=== PATIENT | female | born 1955 | race Caucasian/White ===

== ENCOUNTER 2017-07-02 08:56 | Day surgery (SDC) | payer BC, OTHER ==
[~2017-07-02 08:56] MED LIST: Lactated Ringers 1,000 ML IV SCH; Lidocaine 1%/Sod Bicarbonate in NS 8.4% 1 ML Syringe PRN; Sodium Chloride 0.9% 10 ML Syringe FLUSH PRN
--- NOTE | 2017-07-02 09:56 | PCM.PREANE ---
Preanesthetic Assessment - Anesthesia/Transfusion/Family Hx Anesthesia History: Prior Anesthesia Without Reaction Family History of Anesthesia Reaction: No Transfusion History: No Prior Transfusion(s) Intubation History: Unknown - Review of Systems General: No Symptoms Pulmonary: No Symptoms (quit smoking 16 yrs ago.) Cardiovascular: No Symptoms (History of HTN, [place] in , with stents times 2 noted.) Gastrointestinal: No Symptoms (history of gastric bypass/GERD) Neurological: No Symptoms Other: Reports: Thyroid Problems (hypothyroid) - Physical Assessment NPO Status Date: 07/01/17 NPO Status Time: 22:00 Pulse: 68 O2 Sat by Pulse Oximetry: 97 Respiratory Rate: 16 Blood Pressure: 137/76 Temperature: 37.1 C Vital Signs: Last Vital Signs Temp 37.1 C 07/02/17 09:05 Pulse 68 07/02/17 09:05 Resp 16 07/02/17 09:05 BP 137/76 07/02/17 09:05 Pulse Ox 97 07/02/17 09:05 Height: 1.57 m Weight: 77.111 kg ASA Class: 3 Mental Status: Alert & Oriented x3 Airway Class: Mallampati = 2 Dentition: Reports: Dentures (upper) Thyro-Mental Finger Breadths: 3 Mouth Opening Finger Breadths: 3 ROM/Head Extension: Full Lungs: Clear to Auscultation, Normal Respiratory Effort Cardiovascular: Regular Rate, Regular Rhythm, No Murmurs - Lab Values: Lab values reviewed and noted and acceptable to proceed with scheduled colonoscopy. - Imaging/EKG Impressions: EKG: SR rate= 57, Consider Left atrial enlargement, Probable Right Ventricular hypertrophy, borderline T wave abnormalities. CXR: unremarkable - Allergies Allergies/Adverse Reactions: Allergies Allergy/AdvReac Type Severity Reaction Status Date / Time atorvastatin [From Lipitor] Allergy Cannot Verified 07/01/17 14:03 Remember - Anesthesia Plan Pre-Op Medication Ordered: Beta Zofia Beta Zofia: Metoprolol Med Last Dose Date: 07/02/17 Med Last Dose Time: 06:30 - Acknowledgements Anesthesia Type Planned: MAC Pt an Appropriate Candidate for the Planned Anesthesia: Yes Alternatives and Risks of Anesthesia Discussed w Pt/Guardian: Yes Pt/Guardian Understands and Agrees with Anesthesia Plan: Yes PreAnesthesia Questionnaire HEENT History: Reports: Impaired Vision, Other (See Below) Other HEENT History: wears glasses, dentures Cardiovascular History: Reports: Hypertension, [place], Stents Respiratory History: Reports: None Gastrointestinal History: Reports: Colon Polyp Genitourinary History: Reports: Other (See Below) Other Genitourinary History: 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 Musculoskeletal History: Reports: Osteoporosis Neurological History: Reports: None Psychiatric History: Reports: None Endocrine/Metabolic History: Reports: Hypothyroidism Hematologic History: Reports: None Immunologic History: Reports: None Oncologic (Cancer) History: Reports: None Dermatologic History: Reports: None - Past Surgical History Head Surgeries/Procedures: Reports: None Cardiovascular Surgical History: Reports: None Respiratory Surgical History: Reports: None GI Surgical History: Reports: Bariatric Procedure, Colonoscopy Female Surgical History: Reports: Section Male Surgical History: Reports: None Endocrine Surgical History: Reports: None Neurological Surgical History: Reports: None Musculoskeletal Surgical History: Reports: Other (See Below) Other Musculoskeletal Surgeries/Procedures:: right rotator cuff repair Oncologic Surgical History: Reports: None Dermatological Surgical History: Reports: None - SUBSTANCE USE Smoking Status *Q: Former Smoker Recreational Drug Use History: No - HOME MEDS Home Medications: Home Meds Aspirin 81 mg PO DAILY 02/24/16 [History] Multivitamin [Multivitamins] 1 each PO DAILY 02/24/16 [History] Omeprazole 20 mg PO DAILY 02/24/16 [History] Cyanocobalamin/FA/Pyridoxine [Folbee] 1 tab PO Q48H 07/01/17 [History] Levothyroxine 125 mcg PO DAILY 07/01/17 [History] Metoprolol Succinate 12.5 mg PO BID 07/01/17 [History] Pravastatin Sodium [Pravastatin Sodium] 80 mg PO DAILY 07/01/17 [History] - CURRENT (IN HOUSE) MEDS Current Meds: Current Medications Lactated Ringer's (Ringers, Lactated) 1,000 mls @ 125 mls/hr IV ASDIRECTED LIVIA Stop: 07/02/17 23:00 Last Admin: 07/02/17 09:20 Dose: 125 mls/hr Lidocaine/Sodium Bicarbonate (Buffered Lidocaine 1% In Ns 8.4%) 0.25 ml .XX ONETIME PRN PRN Reason: Prior to IV Start Stop: 07/02/17 18:00 Last Admin: 07/02/17 09:20 Dose: 0.25 ml Sodium Chloride (Saline Flush) 10 ml FLUSH ASDIRECTED PRN PRN Reason: Keep Vein Open Stop: 07/02/17 18:00
[2017-07-02] MEDS ORDERED: Propofol 200 MG/20 ML SDV ONE (11:08)
[2017-07-02] MEDS ORDERED: Lidocaine 1% 4 ML ONE (11:09)
--- NOTE | 2017-07-02 11:32 | PCM.OPNOTE ---
- General Post-Op/Procedure Note Date of Surgery/Procedure: 07/02/17 Operative Procedure(s): Colonoscopy with rectal polypectomy 2 Findings: 1. Anal tags 2. Uncomplicated scattered and few sigmoid diverticula 3. Diminutive rectal polyps 2, both less than 5-6 mm in diameter Pre Op Diagnosis: History of multiple colorectal polyps Post-Op Diagnosis: 1. Anal skin tags. 2. Uncomplicated sigmoid diverticulosis. 3. Diminutive rectal polyps 2 Anesthesia Technique: MAC, Moderate Sedation Primary Surgeon: Martinez Covarrubias Pathology: Polyps from the rectum EBL in mLs: 0 Complications: None Condition: Good Free Text/Narrative:: After adequate IV sedation and analgesia was obtained with monitoring the patient was placed on her left side. Perianal inspection revealed 2-3 moderate- sized anal tags. Digital rectal examination was normal. A lubricated colonoscope was inserted into the rectum and advanced to the cecum with air insufflation as necessary and some abdominal pressure. The bowel preparation was adequate. The cecum, ascending colon transverse and descending colons were endoscopically normal with no mass lesions or inflammatory changes seen. The sigmoid had a few scattered small uncomplicated diverticuli. The rectum had 2 polyps which were removed with cold forceps. The specimen was retrieved and the areas were hemostatic. The retroflexed rectal view was unremarkable. Photographs were taken for the patient for the medical record. Air was removed as I finished the procedure which she tolerated well.
--- NOTE | 2017-07-02 11:37 | PCM48HPAN ---
Post Anesthesia Note - EVALUATION WITHIN 48HRS OF ANESTHETIC Vital Signs in Normal Range: Yes Patient Participated in Evaluation: Yes Respiratory Function Stable: Yes Airway Patent: Yes Cardiovascular Function Stable: Yes Hydration Status Stable: Yes Pain Control Satisfactory: Yes Nausea and Vomiting Control Satisfactory: Yes Mental Status Recovered: Yes
[2017-07-02 12:11] VITALS: BP 117/76
== END 2017-07-02 12:15 | disposition home or self-care (01) ==
LOC: JD.SDS 08:56
PROVIDERS: ATTEND Surgery
DX: Z12.11 Encounter for screening for malignant neoplasm of colon (principal); D12.8 Benign neoplasm of rectum; K57.30 Diverticulosis of large intestine without perforation or abscess without bleeding; K64.4 Residual hemorrhoidal skin tags; I10 Essential (primary) hypertension; I25.2 Old myocardial infarction; E78.5 Hyperlipidemia, unspecified; M81.0 Age-related osteoporosis without current pathological fracture; Z86.010 Personal history of colon polyps; Z87.891 Personal history of nicotine dependence; Z80.0 Family history of malignant neoplasm of digestive organs; Z83.3 Family history of diabetes mellitus; Z88.8 Allergy status to other drugs, medicaments and biological substances; Z79.82 Long term (current) use of aspirin; Z79.899 Other long term (current) drug therapy; Z98.890 Other specified postprocedural states; Z98.84 Bariatric surgery status; Z95.5 Presence of coronary angioplasty implant and graft
CPT/HCPCS: 45380; 93005; J7120; 00810; J2704

== ENCOUNTER 2018-09-20 11:35 | Emergency (ER) | payer BC ==
[2018-09-20 11:52] VITALS: BP 129/79
--- NOTE | 2018-09-20 12:06 | EDM.PDOC ---
ED HPI GENERAL MEDICAL PROBLEM - General Chief Complaint: Abdominal Pain Stated Complaint: ABDOMINAL PAIN Time Seen by Provider: 09/20/18 11:53 Source of Information: Reports: Patient, RN Notes Reviewed History Limitations: Reports: No Limitations - History of Present Illness INITIAL COMMENTS - FREE TEXT/NARRATIVE: Patient is s 63 year old female who presents to the ED with family members for the evaluation of upper abdominal pain. She states that she has been having some upper abdominal pain since before . She was see for a GI bleed around that time, and she has been on iron supplementation and has been having some constipation issues since then. She was also supposed to have an upper endoscopy and colonoscopy to figure out etiology of GI bleed, but his has not been done and is now scheduled for . She recently had a parathyroidectomy performed in [place] this last week and was discharged on Friday. She states that she had a normal BM yesterday, but this was very hard. She was also passing gas yesterday, and is now not able to pass gas. She has taken colace and miralax with 8 oz of water yesterday. She also has not been eating or drinking much since the parathyroidectomy. She has eaten some soft foods like pudding, with juice water and ensure. She has not take her regular medications yet this AM but has taken a Tramadol and some tylenol for pain relief. She states that she still has her appendix and gallbladder. She denies any fever/chills, nausea/vomiting/diarrhea, chest pain, shortness of breath. Treatments MEDICAL DIRECTOR: Reports: Other (see below) Other Treatments MEDICAL DIRECTOR: tramadol Upper Abdomen Pain Score (Numeric/FACES): 10 - Related Data Allergies Allergy/AdvReac Type Severity Reaction Status Date / Time atorvastatin [From Lipitor] Allergy Cannot Verified 08/15/18 20:39 Remember Home Meds: Home Meds Multivitamin [Multivitamins] 1 each PO DAILY 02/24/16 [History] Omeprazole 20 mg PO Q3D 02/24/16 [History] Cyanocobalamin/Folic AC/Vit B6 [Folbee] 1 tab PO ASDIRECTED 07/01/17 [History] Levothyroxine 112 mcg PO DAILY 07/01/17 [History] Metoprolol Succinate 12.5 mg PO DAILY 07/01/17 [History] Pravastatin Sodium 80 mg PO DAILY 07/01/17 [History] Solifenacin [Vesicare] 5 mg PO DAILY 08/15/18 [History] traMADol [Ultram] 50 mg PO Q6H PRN 09/20/18 [History] Past Medical History HEENT History: Reports: Impaired Vision, Other (See Below) Other HEENT History: wears glasses, dentures Cardiovascular History: Reports: Hypertension, [place], Stents Respiratory History: Reports: None Gastrointestinal History: Reports: Colon Polyp Genitourinary History: Reports: Other (See Below) Other Genitourinary History: 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, Musculoskeletal History: Reports: Osteoporosis Neurological History: Reports: None Psychiatric History: Reports: None Endocrine/Metabolic History: Reports: Hypothyroidism, Other (See Below) Other Endocrine/Metabolic History: parathyroid surgery Hematologic History: Reports: None Immunologic History: Reports: None Oncologic (Cancer) History: Reports: None Dermatologic History: Reports: None - Past Surgical History Head Surgeries/Procedures: Reports: None Cardiovascular Surgical History: Reports: None Respiratory Surgical History: Reports: None GI Surgical History: Reports: Bariatric Procedure, Colonoscopy, Polypectomy Female Surgical History: Reports: Section Endocrine Surgical History: Reports: Parathyroidectomy Neurological Surgical History: Reports: None Musculoskeletal Surgical History: Reports: Other (See Below) Other Musculoskeletal Surgeries/Procedures:: right rotator cuff repair Oncologic Surgical History: Reports: None Dermatological Surgical History: Reports: None Social & Family History - Tobacco Use Smoking Status *Q: Former Smoker Used Tobacco, but Quit: Yes Month/Year Tobacco Last Used: 20 yr - Caffeine Use Caffeine Use: Reports: Coffee - Recreational Drug Use Recreational Drug Use: No ED ROS GENERAL - Review of Systems Review Of Systems: See Below Constitutional: Denies: Fever, Chills, Decreased Appetite, Weight Loss HEENT: Reports: Other (recent parathyroidectomy) Respiratory: Reports: No Symptoms Cardiovascular: Reports: No Symptoms Endocrine: Reports: No Symptoms GI/Abdominal: Reports: Abdominal Pain (upper abdominal cramping), Constipation. Denies: Diarrhea, Decreased Appetite, Difficulty Swallowing, Distension, Flatus, Hematochezia, Melena, Nausea, Vomiting : Reports: No Symptoms Musculoskeletal: Reports: No Symptoms Skin: Reports: No Symptoms Neurological: Reports: No Symptoms Psychiatric: Reports: No Symptoms Hematologic/Lymphatic: Reports: No Symptoms Immunologic: Reports: No Symptoms ED EXAM, GI/ABD - Physical Exam Exam: See Below Exam Limited By: No Limitations General Appearance: Alert, WD/WN, No Apparent Distress Eyes: Bilateral: Normal Appearance Ears: Normal External Exam Nose: Normal Inspection Throat/Mouth: Normal Inspection, Normal Oropharynx, No Airway Compromise Head: Atraumatic, Normocephalic Neck: Normal Inspection Respiratory/Chest: No Respiratory Distress, Lungs Clear, Normal Breath Sounds, No Accessory Muscle Use, Chest Non-Tender Cardiovascular: Normal Peripheral Pulses, Regular Rate, Rhythm, No Edema, No Murmur GI/Abdominal Exam: Soft, No Distention, No Mass, Tender (LUQ and over epigastrium mainly), Abnormal Bowel Sounds (hypoactive) Extremities: Normal Inspection, Normal Capillary Refill Neurological: Alert, Oriented, Normal Cognition, No Motor/Sensory Deficits Psychiatric: Normal Affect, Normal Mood Skin Exam: Warm, Dry, Intact, Normal Color, No Rash Course - Vital Signs Last Recorded V/S: Last Vital Signs Temp 97.3 F 09/20/18 11:51 Pulse 69 09/20/18 11:51 Resp 20 09/20/18 11:51 BP 129/79 09/20/18 11:51 Pulse Ox 93 L 09/20/18 11:51 - Orders/Labs/Meds Orders: Active Orders 24 hr Category Date Time Status Enema [RC] ASDIRECTED Care 09/20/18 13:13 Active Peripheral IV Care [RC] . DIRECTED Care 09/20/18 12:27 Active CALCIUM, IONIZED, SERUM [REF] Stat Lab 09/20/18 12:55 Received Peripheral IV Insertion Adult [OM.PC] Routine Oth 09/20/18 12:27 Ordered Labs: Laboratory Tests 09/20/18 09/20/18 09/20/18 Range/Units 12:55 12:55 12:55 WBC 9.25 (3.98-10.04) K/mm3 RBC 3.89 L (3.98-5.22) M/mm3 Hgb 9.6 L (11.2-15.7) gm/L Hct 31.4 L (34.1-44.9) % MCV 80.7 (79.4-94.8) fl MCH 24.7 L (25.6-32.2) pg MCHC 30.6 L (32.2-35.5) g/dl RDW Std Deviation 49.5 H (36.4-46.3) fL Plt Count 522 H (182-369) K/mm3 MPV 9.5 (9.4-12.3) fl Neutrophils % (Manual) 81 H (40-60) % Band Neutrophils % 0 (0-10) % Lymphocytes % (Manual) 12 L (20-40) % Atypical Lymphs % 0 % Monocytes % (Manual) 3 (2-10) % Eosinophils % (Manual) 3 (0.7-5.8) % Basophils % (Manual) 1 (0.1-1.2) Platelet Estimate Marked inc Plt Morphology Comment Normal Polychromasia 1+ slight Anisocytosis 2+ moderate Ovalocytes Few RBC Morph Comment Not Reportable Sodium 138 (136-145) mEq/L Potassium 4.5 (3.5-5.1) mEq/L Chloride 99 (98-107) mEq/L Carbon Dioxide 28 (21-32) mEq/L Anion Gap 15.5 H (5-15) BUN 19 H (7-18) mg/dL Creatinine 1.1 H (0.55-1.02) mg/dL Est Cr Clr Drug Dosing 40.86 mL/min Estimated GFR (MDRD) 50 (>60) mL/min BUN/Creatinine Ratio 17.3 (14-18) Glucose 94 (80-115) mg/dL Calcium 10.2 H (8.5-10.1) mg/dL Magnesium 2.4 (1.8-2.4) mg/dl Total Bilirubin 0.3 (0.2-1.0) mg/dL AST 16 (15-37) U/L ALT 15 (14-59) U/L Alkaline Phosphatase 128 H (46-116) U/L Total Protein 8.6 H (6.4-8.2) g/dl Albumin 3.3 L (3.4-5.0) g/dl Globulin 5.3 gm/dL Albumin/Globulin Ratio 0.6 L (1-2) Meds: Medications Discontinued Medications Generic Name Dose Route Start Last Admin Trade Name Freq PRN Reason Stop Dose Admin Sodium Chloride 1,000 mls @ 500 mls/hr 09/20/18 12:30 09/20/18 13:01 Normal Saline IV 500 mls/hr ASDIRECTED LIVIA Administration Ketorolac Tromethamine 30 mg 09/20/18 12:26 09/20/18 13:05 Toradol IVPUSH 09/20/18 12:27 30 mg ONETIME ONE Administration Magnesium Citrate 296 ml 09/20/18 12:24 09/20/18 13:00 Citrate Of Magnesia PO 09/20/18 12:25 148 ml ONETIME ONE Administration Sodium Chloride 10 ml 09/20/18 12:27 09/20/18 13:06 Saline Flush FLUSH 10 ml ASDIRECTED PRN Administration Keep Vein Open - Re-Assessments/Exams Free Text/Narrative Re-Assessment/Exam: 09/20/18 12:42 Pt presents to the ED for the evaluation of upper abdominal pain/cramping. It is strongly suspicious for constipation. Have ordered IV fluids, CBC, CMP, magnesium, serum calcium with ionized calcium (due to recent parathryoidectomy) , and 30mg IV toradol and mag citrate, 1/2 bottle to start with, then the other half if no results in the next hour or so. 09/20/18 13:28 Nurse informed me that the patient was inquisitive of what I had ordered. She thought maybe showing the patient how to to an enema at home may help her with the constipation issues. I am fine with with this and did order a saline enema to see if this helps produce results as well. 09/20/18 14:33 Pt states that she has had 2 bowel movements and her pain has subsided. Will continue with IV bag of fluids until it is done and she will be discharged home. Departure - Departure Time of Disposition: 14:45 Disposition: Home, Self-Care 01 Condition: Fair Clinical Impression: Constipation Qualifiers: Constipation type: unspecified constipation type Qualified Code(s): K59.00 - Constipation, unspecified - Discharge Information *PRESCRIPTION DRUG MONITORING PROGRAM REVIEWED*: No *COPY OF PRESCRIPTION DRUG MONITORING REPORT IN PATIENT RAFAEL: No Instructions: High-Fiber Diet, Constipation, Adult, [id number], Pain Medicine Instructions, [id number] Referrals: Alma Burch PA [Primary Care Provider] - Forms: ED Department Discharge Additional Instructions: You have been evaluated in the ED for abdominal cramping. This was due to constipation. You have multiple factors working against you that lead to this, such as iron supplementation, recent surgery, tramadol, decreased fluid intake, etc. You may use an enema as needed for feelings of constipation, but if you do not get results within a few hours after the enema, you should be evaluated further. Please try increase your fluid intake as well. Dietary recommendations have been provided. Please return to ED if your symptoms should change or worsen. - My Orders Last 24 Hours: My Active Orders 09/20/18 12:27 Peripheral IV Care [RC] . DIRECTED Peripheral IV Insertion Adult [OM.PC] Routine 09/20/18 12:55 CALCIUM, IONIZED, SERUM [REF] Stat 09/20/18 13:13 Enema [RC] ASDIRECTED - Assessment/Plan Last 24 Hours: My Active Orders 09/20/18 12:27 Peripheral IV Care [RC] . DIRECTED Peripheral IV Insertion Adult [OM.PC] Routine 09/20/18 12:55 CALCIUM, IONIZED, SERUM [REF] Stat 09/20/18 13:13 Enema [RC] ASDIRECTED
[2018-09-20] MEDS ORDERED: Magnesium Citrate Solution 296 ML Bottle PO ONE (12:24)
[2018-09-20] MEDS ORDERED: Ketorolac 30 MG/ML SDV IVPUSH ONE (12:26)
[2018-09-20] MEDS ORDERED: Sodium Chloride 0.9% 10 ML Syringe FLUSH PRN (12:27)
[2018-09-20] MEDS ORDERED: Sodium Chloride 0.9% 1,000 ML IV SCH (12:30)
== END 2018-09-20 15:17 | disposition home or self-care (01) ==
LOC: JD.ED 11:35
DX: K59.00 Constipation, unspecified (principal); I10 Essential (primary) hypertension; I25.2 Old myocardial infarction; E03.9 Hypothyroidism, unspecified; Z87.891 Personal history of nicotine dependence; Z95.5 Presence of coronary angioplasty implant and graft; Z79.899 Other long term (current) drug therapy; Z88.8 Allergy status to other drugs, medicaments and biological substances
CPT/HCPCS: 80053; 82330; 83735; 85007; 85027; 96361; 96374; 99283; A9270; J1885; J7040; 99284

== ENCOUNTER 2020-04-04 11:51 | Emergency (ER) | payer OTHER, BC, MEDICARE ==
--- NOTE | 2020-04-04 12:25 | EDM.PDOC ---
ED HPI GENERAL MEDICAL PROBLEM - General Chief Complaint: General Stated Complaint: FELICE ABULUANCE Time Seen by Provider: 04/04/20 12:13 Source of Information: Reports: Patient, Family (spouse) History Limitations: Reports: No Limitations - History of Present Illness INITIAL COMMENTS - FREE TEXT/NARRATIVE: 64-year-old female presents to the ED per [facility] as a trauma alert. 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 She got tripped up and ended up falling face first into the concrete tiled floor. This caused her to be dazed but she did not lose consciousness. She believes she hit her forehead on the floor and she definitely struck her nose and her maxilla on the floor fracturing her upper denture plate and half. She has active bleeding from the gingiva and upper lip and right anterior naris. Complaining of mild cervical neck pain headache with no nausea. She is complaining of pain both sides of her anterior chest wall particularly the lower ribs. Some pain also in her back at the thoracolumbar junction pain in both wrists where she attempted to break her fall. She denies any pain in her knees at this time. She stayed on the floor did not get up until paramedics arrived. They started an IV and provided her with fentanyl 50 mcg IV. Her blood pressure here was 72/50 initially. Then came up to 108/74 5 minutes later. Perhaps fentanyl given by the paramedics because the transient hypotension. IV Ringer's lactate will be run at open. She does take medication for blood pressure in the mornings. She has not yet ate or drank yet today. Onset: Today, Sudden Onset Date: 04/04/20 Onset Time: 11:30 Treatments DIRECTOR CONSUMER: Reports: IV/IO Chest Pain Score (Numeric/FACES): 9 - Related Data Allergies Allergy/AdvReac Type Severity Reaction Status Date / Time atorvastatin [From Lipitor] Allergy Cannot Verified 04/04/20 12:08 Remember Home Meds: Home Meds Multivitamin [Multivitamins] 1 each PO DAILY 02/24/16 [History] Cyanocobalamin/Folic AC/Vit B6 [Folbee] 1 tab PO ASDIRECTED 07/01/17 [History] Levothyroxine 112 mcg PO DAILY 07/01/17 [History] Metoprolol Succinate 12.5 mg PO DAILY 07/01/17 [History] Pravastatin Sodium 80 mg PO DAILY 07/01/17 [History] L.acidoph,Paracasei, B.lactis [Probiotic] 1 each PO DAILY 09/22/18 [History] Pantoprazole Sodium [Protonix] 40 mg PO DAILY #30 tablet. 09/24/18 [Rx] Oxybutynin Chloride [Oxybutynin Chloride ER] 1 tab PO DAILY 04/04/20 [History] oxyCODONE HCl/Acetaminophen [Percocet 5-325 mg Tablet] 1 - 2 each PO Q4H PRN #20 tablet 04/04/20 [Rx] Past Medical History HEENT History: Reports: Impaired Vision, Other (See Below) Other HEENT History: wears glasses, dentures Cardiovascular History: Reports: Hypertension, [place], Stents (Has at least 1 stent placed after myocardial infarction.) Respiratory History: Reports: None Other Respiratory History: former smoker Gastrointestinal History: Reports: Colon Polyp, GERD, GI Bleed, Other (See Below) Other Gastrointestinal History: lower GI bleed, unknown source Genitourinary History: Reports: Other (See Below) Other Genitourinary History: 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 [employer] History: Reports: None, Musculoskeletal History: Reports: Osteoporosis Neurological History: Reports: None Psychiatric History: Reports: None Endocrine/Metabolic History: Reports: Hypothyroidism, Other (See Below) Other Endocrine/Metabolic History: parathyroid surgery Hematologic History: Reports: None Immunologic History: Reports: None Oncologic (Cancer) History: Reports: None Dermatologic History: Reports: None - Infectious Disease History Infectious Disease History: Reports: None - Past Surgical History Head Surgeries/Procedures: Reports: None Cardiovascular Surgical History: Reports: None Respiratory Surgical History: Reports: None GI Surgical History: Reports: Bariatric Procedure, Colonoscopy, Polypectomy Female Surgical History: Reports: Section Endocrine Surgical History: Reports: Parathyroidectomy Neurological Surgical History: Reports: None Musculoskeletal Surgical History: Reports: Other (See Below) Other Musculoskeletal Surgeries/Procedures:: right rotator cuff repair Oncologic Surgical History: Reports: None Dermatological Surgical History: Reports: None Social & Family History - Family History Family Medical History: Noncontributory - Tobacco Use Smoking Status *Q: Never Smoker - Caffeine Use Caffeine Use: Reports: Coffee - Recreational Drug Use Recreational Drug Use: No - Living Situation & Occupation Living situation: Reports: Occupation: Employed (She is employed at [employer] where she got hurt.) ED ROS GENERAL - Review of Systems Review Of Systems: See Below Constitutional: Reports: Malaise, Weakness, Fatigue. Denies: Fever, Chills, Weight Loss HEENT: Reports: Glasses Respiratory: Reports: Shortness of Breath. Denies: Wheezing, Pleuritic Chest Pain, Cough, Sputum Cardiovascular: Reports: Chest Pain (Chest pain after falling face first on concrete floor.), Blood Pressure Problem (On medication for blood pressure due to heart attack in the past), Dyspnea on Exertion Endocrine: Reports: Fatigue GI/Abdominal: Reports: No Symptoms : Reports: Frequency, Incontinence (Both stress and urge components.) Musculoskeletal: Reports: Neck Pain, Shoulder Pain, Back Pain, Joint Pain (His hips lower back) Skin: Reports: No Symptoms (National.) Neurological: Reports: No Symptoms Psychiatric: Reports: No Symptoms Hematologic/Lymphatic: Reports: No Symptoms Immunologic: Reports: No Symptoms ED EXAM, GENERAL - Physical Exam Exam: See Below Exam Limited By: No Limitations General Appearance: Alert, WD/WN, Moderate Distress, Other (Temperature is 35.9 which is inaccurate. Heart rate was 56 sinus bradycardia in the monitor respiratory to 16 with O2 sats of 92% room air. Initial BP was 72/50 but did come up to 108/72. Note she had received fentanyl 50 mcg IV just prior to entering the ED.) Eye Exam: Bilateral Eye: Normal Inspection, PERRL Ears: Normal TMs Nose: Other (Some fresh blood from the anterior right naris. The nose itself seems to be intact with no obvious fractures. No septal hematoma identified) Throat/Mouth: Other (She has marked swelling and abrasions to her upper lip particular the inner upper mucosa in the midline. There is also contusions to the gingiva margin in the midline but no significant lacerations that would benefit from repair. She fractured her upper denture plate in half which caused these injuries. No obvious injuries to the tongue or lower dentition.) Head: Other (Some tenderness in the mid forehead without significant swelling or scalp hematoma.) Neck: Carotid Bruit, Tender Lateral (Are in the midline from cervical 4 to cervical 7. No step-off deformities identified. Tender laterally both sides of the cervical spine but she states she has chronic cervical neck pain.), Tender Midline. No: Lymphadenopathy (L), Lymphadenopathy (R) Respiratory/Chest: No Respiratory Distress, Normal Breath Sounds, No Accessory Muscle Use, Decreased Breath Sounds (Creased air entry to the posterior lung alanis by 25%.), Other (Pain to palpation of lateral anterior ribs 6-12 bilaterally. Seems to be worse along the costal margins bilaterally.) Cardiovascular: Regular Rate, Rhythm, No Edema, No Gallop, No Murmur, No Rub, Other (Is a thick chest making heart sounds a little more faint than normal but no abnormalities were noted.) Peripheral Pulses: 2+: Carotid (L), Carotid (R), Posterior Tibial (L), Posterior Tibial (R), Dorsalis Pedis (L), Dorsalis Pedis (R) GI/Abdominal: Normal Bowel Sounds, Soft, Non-Tender, No Organomegaly, No Mass, Pelvis Stable, Other (No obvious abrasions or contusions to the abdomen). No: Guarding, Rigid, Rebound, Tender Back Exam: Other (She has pain to palpation at the thoracolumbar junction and lower thoracic's 06/04/2012 and lumbar 1-3 on examination. No abrasions or contusions are appreciated on her back.) Extremities: Other (She had full patellofemoral movement without pain. She has very limited external rotation of both hips suggesting significant osteoarthritic change. No pain in the pelvis with this movement. Upper extremities show pain in both wrists to palpation worse on the left side as compared to the right. Suspect fracture in the left distal radius.) Neurological: Alert, Oriented, CN II-XII Intact, Normal Cognition Psychiatric: Other Skin Exam: Warm, Dry (Good deal of discomfort.), Intact, Normal Color, No Rash EKG INTERPRETATION EKG Date: 04/04/20 Time: 12:28 Rhythm: Other (Sinus bradycardia) Rate (Beats/Min): 52 [place]: RAD-Right [place] Deviation (Right axis deviation 163 degrees) P-Wave: Enlarged (Left atrial hypertrophy pattern.) QRS: Other (Alexander R wave transition V2 V3 consider right ventricular hypertrophy pattern. Decreased voltage in the limb leads.) ST-T: Normal QT: Normal EKG Interpretation Comments: Abnormal ECG Course - Vital Signs Last Recorded V/S: Last Vital Signs Temp 35.9 C L 04/04/20 12:02 Pulse 56 L 04/04/20 12:02 Resp 16 04/04/20 12:02 BP 88/61 L 04/04/20 12:11 Pulse Ox 92 L 04/04/20 12:16 - Orders/Labs/Meds Orders: Active Orders 24 hr Category Date Time Status EKG Documentation Completion [RC] STAT Care 04/04/20 12:18 Active Oxygen Therapy [RC] ASDIRECTED Care 04/04/20 14:24 Active CORONAVIRUS COVID-19 PCR PHL Stat Lab 04/04/20 14:24 Ordered Lactated Ringers [Ringers, Lactated] 1,000 ml Med 04/04/20 12:30 Active IV ASDIRECTED Durable Medical Equipment for Discharge [DME for Oth 04/04/20 14:21 Ordered Discharge] [COMM] Stat Medication Orders Lactated Ringer's (Ringers, Lactated) 1,000 mls @ 999 mls/hr IV ASDIRECTED LIVIA Last Admin: 04/04/20 12:26 Dose: 999 mls/hr Documented by: TEZ Labs: Laboratory Tests 04/04/20 04/04/20 04/04/20 Range/Units 13:17 13:17 13:17 WBC 8.80 (3.98-10.04) K/mm3 RBC 4.82 (3.98-5.22) M/mm3 Hgb 13.5 (11.2-15.7) gm/dl Hct 41.4 (34.1-44.9) % MCV 85.9 (79.4-94.8) fl MCH 28.0 (25.6-32.2) pg MCHC 32.6 (32.2-35.5) g/dl RDW Std Deviation 44.0 (36.4-46.3) fL Plt Count 253 (182-369) K/mm3 MPV 9.7 (9.4-12.3) fl Neut % (Auto) 78.4 H (34.0-71.1) % Lymph % (Auto) 12.7 L (19.3-51.7) % [place] % (Auto) 7.6 (4.7-12.5) % Eos % (Auto) 0.7 (0.7-5.8) Baso % (Auto) 0.3 (0.1-1.2) % Neut # (Auto) 6.89 H (1.56-6.13) K/mm3 Lymph # (Auto) 1.12 L (1.18-3.74) K/mm3 [place] # (Auto) 0.67 H (0.24-0.36) K/mm3 Eos # (Auto) 0.06 (0.04-0.36) K/mm3 Baso # (Auto) 0.03 (0.01-0.08) K/mm3 PT 10.3 (9.7-12.0) SECONDS INR 0.96 APTT 21 L (22-31) SECONDS Sodium (136-145) mEq/L Potassium (3.5-5.1) mEq/L Chloride (98-107) mEq/L Carbon Dioxide (21-32) mEq/L Anion Gap (5-15) BUN (7-18) mg/dL Creatinine (0.55-1.02) mg/dL Est Cr Clr Drug Dosing Estimated GFR (MDRD) (>60) mL/min BUN/Creatinine Ratio (14-18) Glucose (80-115) mg/dL Lactic Acid (0.4-2.0) mmol/L Calcium (8.5-10.1) mg/dL Magnesium (1.8-2.4) mg/dl Total Bilirubin (0.2-1.0) mg/dL AST (15-37) U/L ALT (14-59) U/L Alkaline Phosphatase (46-116) U/L Troponin I (0.00-0.056) ng/mL C-Reactive Protein (<1.0) mg/dL NT-Pro-B Natriuret Pep (0-125) pg/mL Total Protein (6.4-8.2) g/dl Albumin (3.4-5.0) g/dl Globulin gm/dL Albumin/Globulin Ratio (1-2) Urine Color (Yellow) Urine Appearance (Clear) Urine pH (5.0-8.0) Ur Specific [place] (1.005-1.030) Urine Protein (Negative) Urine Glucose (UA) (Negative) Urine Ketones (Negative) Urine Occult Blood (Negative) Urine Nitrite (Negative) Urine Bilirubin (Negative) Urine Urobilinogen (0.2-1.0) Ur Leukocyte Esterase (Negative) U Hyaline Cast (Auto) (0-5) /lpf Urine RBC (0-5) /hpf Urine WBC (0-5) /hpf Ur Squamous Epith Cells (0-5) /hpf Urine Bacteria (FEW) /hpf Urine Mucus (FEW) /hpf Blood Type B POSITIVE Gel Antibody Screen Negative 04/04/20 04/04/20 04/04/20 Range/Units 13:17 13:17 13:17 WBC (3.98-10.04) K/mm3 RBC (3.98-5.22) M/mm3 Hgb (11.2-15.7) gm/dl Hct (34.1-44.9) % MCV (79.4-94.8) fl MCH (25.6-32.2) pg MCHC (32.2-35.5) g/dl RDW Std Deviation (36.4-46.3) fL Plt Count (182-369) K/mm3 MPV (9.4-12.3) fl Neut % (Auto) (34.0-71.1) % Lymph % (Auto) (19.3-51.7) % [place] % (Auto) (4.7-12.5) % Eos % (Auto) (0.7-5.8) Baso % (Auto) (0.1-1.2) % Neut # (Auto) (1.56-6.13) K/mm3 Lymph # (Auto) (1.18-3.74) K/mm3 [place] # (Auto) (0.24-0.36) K/mm3 Eos # (Auto) (0.04-0.36) K/mm3 Baso # (Auto) (0.01-0.08) K/mm3 PT (9.7-12.0) SECONDS INR APTT (22-31) SECONDS Sodium 135 L (136-145) mEq/L Potassium 4.4 (3.5-5.1) mEq/L Chloride 101 (98-107) mEq/L Carbon Dioxide 30 (21-32) mEq/L Anion Gap 8.4 (5-15) BUN 16 (7-18) mg/dL Creatinine 1.1 H (0.55-1.02) mg/dL Est Cr Clr Drug Dosing TNP Estimated GFR (MDRD) 50 (>60) mL/min BUN/Creatinine Ratio 14.5 (14-18) Glucose 96 (80-115) mg/dL Lactic Acid 1.1 (0.4-2.0) mmol/L Calcium 10.1 (8.5-10.1) mg/dL Magnesium 1.9 (1.8-2.4) mg/dl Total Bilirubin 0.5 (0.2-1.0) mg/dL AST 23 (15-37) U/L ALT 27 (14-59) U/L Alkaline Phosphatase 69 (46-116) U/L Troponin I < 0.017 (0.00-0.056) ng/mL C-Reactive Protein <0.2 (<1.0) mg/dL NT-Pro-B Natriuret Pep 260 H (0-125) pg/mL Total Protein 7.1 (6.4-8.2) g/dl Albumin 3.3 L (3.4-5.0) g/dl Globulin 3.8 gm/dL Albumin/Globulin Ratio 0.9 L (1-2) Urine Color (Yellow) Urine Appearance (Clear) Urine pH (5.0-8.0) Ur Specific [place] (1.005-1.030) Urine Protein (Negative) Urine Glucose (UA) (Negative) Urine Ketones (Negative) Urine Occult Blood (Negative) Urine Nitrite (Negative) Urine Bilirubin (Negative) Urine Urobilinogen (0.2-1.0) Ur Leukocyte Esterase (Negative) U Hyaline Cast (Auto) (0-5) /lpf Urine RBC (0-5) /hpf Urine WBC (0-5) /hpf Ur Squamous Epith Cells (0-5) /hpf Urine Bacteria (FEW) /hpf Urine Mucus (FEW) /hpf Blood Type Gel Antibody Screen 04/04/20 Range/Units 13:31 WBC (3.98-10.04) K/mm3 RBC (3.98-5.22) M/mm3 Hgb (11.2-15.7) gm/dl Hct (34.1-44.9) % MCV (79.4-94.8) fl MCH (25.6-32.2) pg MCHC (32.2-35.5) g/dl RDW Std Deviation (36.4-46.3) fL Plt Count (182-369) K/mm3 MPV (9.4-12.3) fl Neut % (Auto) (34.0-71.1) % Lymph % (Auto) (19.3-51.7) % [place] % (Auto) (4.7-12.5) % Eos % (Auto) (0.7-5.8) Baso % (Auto) (0.1-1.2) % Neut # (Auto) (1.56-6.13) K/mm3 Lymph # (Auto) (1.18-3.74) K/mm3 [place] # (Auto) (0.24-0.36) K/mm3 Eos # (Auto) (0.04-0.36) K/mm3 Baso # (Auto) (0.01-0.08) K/mm3 PT (9.7-12.0) SECONDS INR APTT (22-31) SECONDS Sodium (136-145) mEq/L Potassium (3.5-5.1) mEq/L Chloride (98-107) mEq/L Carbon Dioxide (21-32) mEq/L Anion Gap (5-15) BUN (7-18) mg/dL Creatinine (0.55-1.02) mg/dL Est Cr Clr Drug Dosing Estimated GFR (MDRD) (>60) mL/min BUN/Creatinine Ratio (14-18) Glucose (80-115) mg/dL Lactic Acid (0.4-2.0) mmol/L Calcium (8.5-10.1) mg/dL Magnesium (1.8-2.4) mg/dl Total Bilirubin (0.2-1.0) mg/dL AST (15-37) U/L ALT (14-59) U/L Alkaline Phosphatase (46-116) U/L Troponin I (0.00-0.056) ng/mL C-Reactive Protein (<1.0) mg/dL NT-Pro-B Natriuret Pep (0-125) pg/mL Total Protein (6.4-8.2) g/dl Albumin (3.4-5.0) g/dl Globulin gm/dL Albumin/Globulin Ratio (1-2) Urine Color Yellow (Yellow) Urine Appearance Clear (Clear) Urine pH 8.0 (5.0-8.0) Ur Specific [place] 1.020 (1.005-1.030) Urine Protein Negative (Negative) Urine Glucose (UA) Negative (Negative) Urine Ketones Negative (Negative) Urine Occult Blood Negative (Negative) Urine Nitrite Negative (Negative) Urine Bilirubin Negative (Negative) Urine Urobilinogen 0.2 (0.2-1.0) Ur Leukocyte Esterase Negative (Negative) U Hyaline Cast (Auto) 0-5 (0-5) /lpf Urine RBC 0-5 (0-5) /hpf Urine WBC 0-5 (0-5) /hpf Ur Squamous Epith Cells 0-5 (0-5) /hpf Urine Bacteria Few (FEW) /hpf Urine Mucus Rare (FEW) /hpf Blood Type Gel Antibody Screen Meds: Medications Generic Name Dose Route Start Last Admin Trade Name Freq PRN Reason Stop Dose Admin Lactated Ringer's 1,000 mls @ 999 mls/hr 04/04/20 12:30 04/04/20 12:26 Ringers, Lactated IV 999 mls/hr ASDIRECTED LIVIA Administration Discontinued Medications Generic Name Dose Route Start Last Admin Trade Name Freq PRN Reason Stop Dose Admin Hydromorphone HCl 0.5 mg 04/04/20 12:39 04/04/20 12:43 Dilaudid IVPUSH 04/04/20 12:40 0.5 mg ONETIME ONE Administration Ondansetron HCl 4 mg 04/04/20 12:39 04/04/20 12:42 Zofran IVPUSH 04/04/20 12:40 4 mg ONETIME ONE Administration - Radiology Interpretation Free Text/Narrative:: 64-year-old female who is an employee at [employer] presents to the ED per ambulance. 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 She fell face first into the concrete tiled floor injuring her mid facial structures particularly fracturing her upper denture plate and a half. This resulted in contusions abrasions to the upper gingiva margin alveolar bone and to her upper lip. No sutures will be required. The lip is markedly swollen. There is bruising on her anterior chin. She has some blood from the right anterior naris with no clinical fracture of the nose. Mild swelling of the mid forehead appreciated. No injuries to the eyes. Temporomandibular joints appear to be intact. No injuries to the tongue or lower dentition identified. Some tenderness throughout the lower and mid cervical spine on exam. Pain at the thoracolumbar junction in her mid back on examination. Pain along the anterior chest wall particular ribs to 6-12 bilaterally from blunt force trauma. Pain in both wrists on examination left worse than the right suspect fracture distal radius on the left side. No injuries to the abdomen. No injuries to the lower extremities identified. Plan she will have CT head cervical spine thoracic spine lumbar spine and CT chest abdomen and pelvis with IV contrast. Her blood pressure initially was 72/50 concerning for intra-abdominal injury but abdomen appeared to be benign on initial assessment. However due to the possibility of injury to liver or spleen from anterior chest wall contusions CT with IV contrast will be done on a emergent basis. IV is Ringer's lactate at open. Given Dilaudid 0.5 mg IV with Zofran 4 mg IV for pain relief. - Re-Assessments/Exams Free Text/Narrative Re-Assessment/Exam: 04/04/20 13:27 CT of the head reveals the ventricles along with the basal cisterns and sulci over the convexities to be mildly prominent. No abnormal parenchymal densities are seen. No evidence of intracranial hemorrhage or midline shift identified. No mass-effect identified. Bone window settings were reviewed which shows the visualized paranasal sinuses and mastoid sinuses show nothing acute. CT of the cervical spine reveals mild degenerative changes noted between the dens and the anterior arch of C1. Mild disc space narrowing is noted at C5-C6 level with slight posterior osteophytes. Mild scattered degenerative apophyseal changes seen throughout the cervical and upper thoracic spine. No fractures are identified. No abnormal subluxation is appreciated. CT of the facial bones reveals paranasal sinuses are clear. No air-fluid levels are seen. Slight nasal septal deviation is seen. Right and left lobes are symmetric. Mild degenerative changes seen within the temporomandibular joints no facial bone fracture is appreciated particularly no maxillary fracture. T of the lumbar spine reveals disc spaces narrowing within the lower thoracic spine and particularly at the L1-L2 level. This space narrowing is also noted at the L5-S1 level. Mild posterior disc space narrowing is also noted at the L4-L5 level. Minimal spondylolisthesis at L4-L5 level appreciated due to degenerative apophyseal changes. Scattered disc bulging is seen. Degenerative apophyseal changes scattered throughout the lumbar spine no acute fractures are identified. T of the thoracic spine reveals advanced degenerative arthritic changes throughout all levels. There is diffuse disc space narrowing and endplate spurring at multiple levels. Several mild compression deformities are seen within the mid to lower thoracic spine which appear to be old as no definite acute fracture lines are appreciated. No bony central or bony neuroforaminal stenosis is seen. Kyphosis is appreciated. CT of the chest reveals the aorta to show no aneurysm. Coronary artery calcification is appreciated. No mediastinal or hilar adenopathy and no or masses are noted. No axillary adenopathy noted. No pericardial thickening is seen. Prior gastric surgery is appreciated small hiatal hernia noted. The lungs are clear with no acute parenchymal changes. No pleural effusions are seen. Heart is mildly enlarged. Bone window settings were reviewed which show degenerative changes throughout the thoracic spine she is also had previous surgery on her right shoulder. CT of the abdomen and pelvis reveals liver to contain no focal parenchymal abnormalities. Spleen appears to be within normal limits. Adrenal glands are normal. Kidneys show symmetric contrast enhancement without hydronephrosis or masses. Gallbladder contains no calcified gallstones. Pancreas shows no discrete abnormality possible duodenal diverticulum is seen measuring 2.5 cm. Aorta shows diffuse atherosclerotic changes. Slight ectasia is seen but no aneurysm identified no retroperitoneal adenopathy noted. No mesenteric abnormalities noted. No pelvic mass or adenopathy noted. Appendix is not visualized with certainty and patient has a history of appendectomy. 04/04/20 13:39 White blood cell count is 8.80 with 78.4% neutrophils on auto differential. Hemoglobin is 13.5 with hematocrit of 41.4. Platelet count is 253,000. X-ray of the left wrist reveals a slight cortical disruption of the posterior radius compatible with a small fracture. X-ray of the right wrist reveals a small chip fracture off the triquetrum bone posteriorly. Osteopenia and mild degenerative changes appreciated in the carpal bones. Going to place an Timothy wrap on her right wrist as the cortical fracture will only be painful with gripping objects. I am going to look for a left thumb spica splint for the triquetrium fracture on the left side. Departure - Departure Time of Disposition: 14:29 Disposition: Home, Self-Care 01 Condition: Fair Clinical Impression: Minor closed head injury, Strain of thoracic spine Facial contusion Qualifiers: Encounter type: initial encounter Qualified Code(s): S00.83XA - Contusion of other part of head, initial encounter Contusion of vermilion border of upper lip Qualifiers: Encounter type: initial encounter Qualified Code(s): S00.531A - Contusion of lip, initial encounter Contusion of chin Qualifiers: Encounter type: initial encounter Qualified Code(s): S00.83XA - Contusion of other part of head, initial encounter Sprain of cervical neck Qualifiers: Encounter type: initial encounter Qualified Code(s): S13.9XXA - Sprain of joints and ligaments of unspecified parts of neck, initial encounter Fracture of triquetrum of left wrist, closed Qualifiers: Encounter type: initial encounter Fracture alignment: displaced Qualified Code(s): S62.112A - Displaced fracture of triquetrum [cuneiform] bone, left wrist, initial encounter for closed fracture Fracture, radius, distal Qualifiers: Encounter type: initial encounter Fracture type: closed Fracture morphology: other extra-articular Laterality: right Qualified Code(s): S52.551A - Other extraarticular fracture of lower end of right radius, initial encounter for closed fracture - Discharge Information *PRESCRIPTION DRUG MONITORING PROGRAM REVIEWED*: Not Applicable *COPY OF PRESCRIPTION DRUG MONITORING REPORT IN PATIENT RAFAEL: Not Applicable Prescriptions: oxyCODONE HCl/Acetaminophen [Percocet 5-325 mg Tablet] 1 - 2 each PO Q4H PRN #20 tablet PRN Reason: pain relief. Instructions: Cervical Sprain, [id number], Wrist Fracture Treated With Immobilization Referrals: PCP,None [Ordering Only Provider] - Forms: ED Department Discharge, ED Return to Work/School Form Additional Instructions: Evaluation in the emergency room today in regards to a work related accident from a trip and fall onto the concrete tiled floor. This resulted in mid facial injuries particular to the chin with bruising fracture of your upper denture plate and contusion to the underlying gingiva and maxillary bone. No fractures are identified. Slight bleeding from the right anterior naris but no nasal fractures appreciated on CT of the facial bones. Mild contusion to the mid forehead. CT reveals no intracranial bleeding or mass-effect and no skull fracture. CT of your neck reveals advanced degenerative arthritic changes throughout at multiple levels but no broken bones. Expect her neck to be much more stiff and sore over the next 2 to 3 days. Pain throughout your thoracolumbar spine which means the mid and lower back junction is due to marked degenerative arthritic changes throughout the lumbar and thoracic spine but no fractures were identified. Expect to have increased back pain over the next 2 to 3 days as well which will probably last a good 10 days. Also blunt trauma occurred to the anterior chest wall from the impact with the floor. No rib fractures were identified and no injury to the underlying lungs identified. No injuries to the lower extremities were identified on examination. Intra-abdo jacob organs were also all within normal limits. X-ray of the left wrist reveals an avulsion fracture off the triquetrum bone which is 1 of 8 bones in your wrist on the thumb side. This requires a thumb spica splint to be worn at all times except to bathe. This will likely be required for 3 to 4 weeks. On the right side there is a cortical sure of the distal radius bone which will likely not hurt too badly except if you bump it or banging it . 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 This will take a good couple of weeks to settle down as well. You will need to be off work for a minimum of 2 weeks and I suspect it would likely be 3 to 4 weeks before you are able to return to full work duties due to injuries to your wrists. Suggest making a follow-up appointment with Dr. Tijerina orthopedic surgeon on the side of the hospital. He works for [facility] in [place]. Please call [phone] to arrange an appointment. He will follow you along to make sure your injuries heal satisfactorily and determine when it is suitable for you to return to work. In the meantime you may use Motrin 600 mg every 6 hours or Aleve 2 tablets every 8 hours to reduce pain and inflammation. Percocet tabs 5/325 mg 1 or 2 every 4-6 hours as needed for the next 3 to 6 days until acute injury settle down. CT did reveal that you have constipation with significant amount of stool in your colon. I would suggest using MiraLAX powder 17 g every single day while you are taking the pain medication. Sepsis Event Note (ED) - Evaluation Sepsis Screening Result: No Definite Risk - Focused Exam Vital Signs: Vital Signs Temp Pulse Resp BP Pulse Ox 04/04/20 12:16 92 L 04/04/20 12:15 83 L 04/04/20 12:11 88/61 L 04/04/20 12:02 35.9 C L 56 L 16 72/50 L 90 L - My Orders Last 24 Hours: My Active Orders 04/04/20 12:18 EKG Documentation Completion [RC] STAT 04/04/20 12:30 Lactated Ringers [Ringers, Lactated] 1,000 ml IV ASDIRECTED 04/04/20 14:21 Durable Medical Equipment for Discharge [DME for Discharge] [COMM] Stat 04/04/20 14:24 Oxygen Therapy [RC] ASDIRECTED CORONAVIRUS COVID-19 PCR PHL Stat - Assessment/Plan Last 24 Hours: My Active Orders 04/04/20 12:18 EKG Documentation Completion [RC] STAT 04/04/20 12:30 Lactated Ringers [Ringers, Lactated] 1,000 ml IV ASDIRECTED 04/04/20 14:21 Durable Medical Equipment for Discharge [DME for Discharge] [COMM] Stat 04/04/20 14:24 Oxygen Therapy [RC] ASDIRECTED CORONAVIRUS COVID-19 PCR PHL Stat
[2020-04-04] MEDS ORDERED: Lactated Ringers 1,000 ML IV SCH (12:30)
[2020-04-04] MEDS ORDERED: Ondansetron 4 MG/2 ML SDV IVPUSH ONE (12:39)
[2020-04-04] MEDS ORDERED: HYDROmorphone 0.5 MG/0.5 ML Syringe IVPUSH ONE (12:39)
--- NOTE | 2020-04-04 13:20 | CT ---
Head CT Technique: Multiple axial sections through the brain were obtained. Intravenous contrast was not utilized. Comparison: No prior intracranial imaging is available. Findings: Ventricles along with basal cisterns and sulci over the convexities are mildly prominent. No abnormal parenchymal densities are seen. No evidence of intracranial hemorrhage. No midline shift or mass effect is appreciated. Bone window settings were reviewed which shows the visualized paranasal sinuses and mastoid sinuses to show nothing acute. No acute calvarial finding is appreciated. Impression: 1. Nothing acute is identified on noncontrast head CT exam. Diagnostic code #2 Study was dictated in MDT
--- NOTE | 2020-04-04 13:21 | CT ---
CT cervical spine Technique: Multiple axial sections were obtained from above C1 inferiorly to the top of T3. Reconstructed sagittal and coronal images were reviewed. Comparison: No prior cervical spine imaging. Findings: Mild degenerative change is noted between the dens and anterior arch of C1. Mild disc space narrowing is noted C5-C6 with slight posterior osteophytes. Mild scattered degenerative apophyseal change is seen throughout the cervical and upper thoracic spine. No fracture is appreciated. No abnormal subluxation is appreciated. No bony central or bony neural foraminal stenosis is appreciated. Impression: 1. Mild degenerative change. 2. No acute fracture or abnormal subluxation is seen. Diagnostic code #2 Study was dictated in MDT
--- NOTE | 2020-04-04 13:22 | CT ---
CT facial bones Technique: Multiple axial sections through the facial bones were obtained. Intravenous contrast not utilized. Reconstructed coronal and sagittal images were obtained. Findings: Paranasal sinuses are clear. No air-fluid levels are seen. Slight nasal septal deviation is seen. Right and left globes are symmetric. Mild degenerative change is seen within the temporomandibular joints. No facial bone fracture is appreciated. Impression: 1. Nothing acute is appreciated on CT study of the facial bones. 2. Mild degenerative change within the temporomandibular joints. Diagnostic code #2 Study was dictated in MDT
--- NOTE | 2020-04-04 13:23 | CT ---
CT lumbar spine Technique: Multiple axial sections through the lumbar spine were obtained. Intravenous contrast was not utilized. Comparison: Previous MRI lumbar spine study of 04/07/19 is available. Findings: Disc space narrowing is noted within the lower thoracic spine and at L1-L2. Disc space narrowing is also noted at L5-S1. Mild posterior disc space narrowing is noted at L4-L5. Minimal spondylolisthesis at L4-L5 due to degenerative apophyseal change is seen. Scattered disc bulging is seen. Degenerative apophyseal change is scattered throughout the lumbar spine. No acute fracture is appreciated. Impression: 1. Diffuse degenerative change. 2. No acute fracture or acute subluxation is appreciated. Diagnostic code #2 Study was dictated in MDT
--- NOTE | 2020-04-04 13:31 | CR ---
Right wrist: 4 views the right wrist were obtained. Comparison: No prior right wrist exam is available. Small chip fracture is noted off posterior triquetrum which is seen on the lateral view. Bony structures are osteopenic. Minimal degenerative change of the distal navicular bone is seen. No additional fracture or other abnormality is appreciated. Impression: 1. Small chip fracture off posterior triquetrum. This is most likely acute. 2. Osteopenia and mild degenerative change. Diagnostic code #3 Study was dictated in MDT
--- NOTE | 2020-04-04 13:32 | CR ---
Left wrist: 4 views of the left wrist were obtained. Comparison: Previous left wrist exam of 02/24/16. Slight joint space narrowing noted off the distal navicular bone. Joint spaces otherwise are preserved. Mild osteopenia is seen. Small bony density is seen off the posterior radius. This may represent a small acute fracture. No additional fracture or other bony abnormality is appreciated. Impression: 1. Slight cortical disruption of the posterior radius possibly due to small acute fracture. 2. Osteopenia and mild degenerative change. Diagnostic code #3 Study was dictated in MDT
--- NOTE | 2020-04-04 13:50 | CT ---
CT chest Technique: Multiple axial sections were obtained from above the lung apices inferiorly through the lung bases. Intravenous contrast was utilized. Comparison: No prior chest CT is available. Findings: Aorta shows no aneurysm. Coronary artery calcification is seen. No mediastinal or hilar adenopathy or mass is seen. No axillary adenopathy is seen. No pericardial thickening is seen. Prior gastric surgery is noted. Small hiatal hernia is seen. Lungs are clear with no acute parenchymal change. No pleural effusions are seen. Heart is slightly enlarged. Bone window settings were reviewed which show degenerative change within the spine. No discrete osseous abnormality is appreciated. Previous right shoulder surgery is noted. Impression: 1. Multiple findings as noted above. 2. Nothing acute is seen on CT study of the chest. Diagnostic code #2 Study was dictated in MDT CT abdomen and pelvis Technique: Multiple axial sections were obtained from above the dome of the diaphragm inferiorly through the pubic symphysis. Intravenous contrast was utilized. No oral contrast has been given. Comparison: No prior abdominal CT is available. Findings: Liver contains no focal parenchymal abnormality. Spleen appears within normal limits. Adrenal glands show no nodule. Kidneys show symmetric contrast enhancement without hydronephrosis or mass. Gallbladder contains no calcified gallstones. Pancreas shows no discrete abnormality. Possible duodenal diverticulum is seen measuring 2.5 cm. Aorta shows diffuse atherosclerotic change. Slight ectasia is seen but no aneurysm is identified. Prior gastric surgery is noted with small hiatal hernia. No retroperitoneal adenopathy is seen. No mesenteric abnormalities are seen. No pelvic mass or adenopathy is appreciated. Appendix not visualized with certainty. Bone window settings were reviewed which shows no acute osseous finding. Impression: 1. Findings believed to be incidental as noted above. 2. Nothing acute is identified on CT study of the abdomen and pelvis. Diagnostic code #2 Study was dictated in MDT
--- NOTE | 2020-04-04 13:51 | CT ---
CT thoracic spine Technique: Multiple axial sections through the thoracic spine were obtained. Reconstructed coronal and sagittal images were reviewed. Findings: Mild diffuse disc space narrowing and endplate spurring is seen. Several mild compression deformities are seen within the mid to lower thoracic spine which are most likely old as no definite acute fracture line is appreciated. No bony central or bony neural foraminal stenosis is seen. Subluxation is appreciated. Kyphosis is noted. Impression: 1. Degenerative change and kyphosis. 2. Several slight compression deformities within the mid and lower thoracic spine which are most likely old. 3. If patient remains symptomatic, MRI study is recommended. Diagnostic code #3 Study was dictated in MDT
[2020-04-04 14:48] VITALS: BP 110/70; PULSE 70
== END 2020-04-04 14:49 | disposition home or self-care (01) ==
LOC: JD.ED 11:51
DX: S09.90XA Unspecified injury of head, initial encounter (principal); S62.111A Displaced fracture of triquetrum [cuneiform] bone, right wrist, initial encounter for closed fracture; S52.551A Other extraarticular fracture of lower end of right radius, initial encounter for closed fracture; S29.012A Strain of muscle and tendon of back wall of thorax, initial encounter; S13.4XXA Sprain of ligaments of cervical spine, initial encounter; S00.531A Contusion of lip, initial encounter; S00.83XA Contusion of other part of head, initial encounter; I25.2 Old myocardial infarction; I10 Essential (primary) hypertension; E03.9 Hypothyroidism, unspecified; Z95.5 Presence of coronary angioplasty implant and graft; Z88.8 Allergy status to other drugs, medicaments and biological substances; W17.89XA Other fall from one level to another, initial encounter
CPT/HCPCS: 29125; 36415; 70450; 70486; 71260; 72125; 72128; 72131; 73110; 74177; 80053; 81001; 83605; 83735; 83880; 84484; 85025; 85610; 85730; 86140; 86850; 86900; 86901; 93005; 96361; 96374; 96375; 99285; J1170; J2405; J7120; 93010; 99284

== ENCOUNTER 2022-09-17 08:32 | Day surgery (SDC) | payer BC, MEDICARE ==
[~2022-09-17 08:32] MED LIST changes: +Lidocaine 1%/Sod Bicarbonate in NS 8.4% 1 ML Syringe IDERM PRN; -Lidocaine 1%/Sod Bicarbonate in NS 8.4% 1 ML Syringe PRN; +Sodium Chloride 0.9% 10 ML Syringe FLUSH SCH
[2022-09-17] MEDS ORDERED: Lidocaine 1% 2 ML ONE (08:43)
[2022-09-17] MEDS ORDERED: Midazolam 1 MG/ML 2 ML SDV ONE (08:43)
[2022-09-17] MEDS ORDERED: Propofol 200 MG/20 ML SDV ONE (08:43)
[2022-09-17] MEDS ORDERED: fentaNYL 100 MCG/2 ML SDV ONE (08:44)
[2022-09-17 10:46] VITALS: BP 130/74; PULSE 72
== END 2022-09-17 10:48 | disposition home or self-care (01) ==
LOC: JD.SDS 08:32
PROVIDERS: ATTEND Surgery
DX: Z12.11 Encounter for screening for malignant neoplasm of colon (principal); D12.5 Benign neoplasm of sigmoid colon; K57.30 Diverticulosis of large intestine without perforation or abscess without bleeding; K64.4 Residual hemorrhoidal skin tags; M19.90 Unspecified osteoarthritis, unspecified site; I10 Essential (primary) hypertension; E03.9 Hypothyroidism, unspecified; E78.00 Pure hypercholesterolemia, unspecified; D50.9 Iron deficiency anemia, unspecified; M81.0 Age-related osteoporosis without current pathological fracture; E55.9 Vitamin D deficiency, unspecified; Z80.0 Family history of malignant neoplasm of digestive organs; Z98.84 Bariatric surgery status; Z79.899 Other long term (current) drug therapy; Z88.8 Allergy status to other drugs, medicaments and biological substances; Z79.890 Hormone replacement therapy; Z98.890 Other specified postprocedural states; Z87.891 Personal history of nicotine dependence
CPT/HCPCS: 45385; J2250; J2704; J3010; J7120; J3490

== ENCOUNTER 2024-09-14 10:09 | Emergency (ER) | payer BC, MEDICARE ==
[2024-09-14 10:37] VITALS: PULSE 67
[2024-09-14 10:52] LABS: BASOPHILS ABSOLUTE AUTO 0.1 K/mm3 (0.0-0.2); BASOPHILS PERCENT AUTO 0.9 % (0.0-1.0); EOSINOPHILS ABSOLUTE AUTO 0.2 K/mm3 (0.0-0.4); EOSINOPHILS PERCENT AUTO 1.9 % (0.0-6.0); HEMATOCRIT 46.3 % (37.0-47.0); HEMOGLOBIN 15.1 gm/dl (12.0-16.0); IMMATURE GRAN ABSOLUTE AUTO 0.04 K/mm3 (0.00-0.05); IMMATURE GRAN PERCENT AUTO 0.5 % (0.0-0.4); LYMPHOCYTES ABSOLUTE AUTO 2.9 K/mm3 (1.0-4.8); LYMPHOCYTES PERCENT AUTO 37.3 % (24.0-44.0); MEAN CORPUSCULAR HEMOGLOBIN 29.3 pg (28.0-32.0); MEAN CORPUSCULAR HGB CONC 32.6 g/dl (32.0-36.0); MEAN CORPUSCULAR VOLUME 89.9 fl (83.0-99.0); MEAN PLATELET VOLUME 11.3 fl (9.4-12.3); MONOCYTES ABSOLUTE AUTO 0.7 K/mm3 (0.0-0.8); MONOCYTES PERCENT AUTO 9.3 % (0.0-8.0); NEUTROPHILS ABSOLUTE AUTO 3.9 K/mm3 (1.8-7.7); NEUTROPHILS PERCENT AUTO 50.1 % (41.0-71.0); RED BLOOD CELL COUNT 5.15 M/mm3 (4.10-5.30); WHITE BLOOD CELL COUNT,WBC 7.73 K/mm3 (3.9-11.3)
[2024-09-14 10:53] LABS: PLATELET COUNT,PLT 157 K/mm3 (150-400)
[2024-09-14 10:54] LABS: A/G RATIO 0.8 (1-2); ALBUMIN 3.3 g/dl (3.4-5.0); ANION GAP 15.8 (5-15); BILIRUBIN TOTAL 0.5 mg/dL (0.2-1.0); CALCIUM 9.3 mg/dL (8.5-10.1); CREATININE 1.2 mg/dL (0.55-1.02); EST CRCL DRUG DOSING (CG) 36.09 mL/min; MAGNESIUM 2.1 mg/dL (1.8-2.4); PROTEIN TOTAL,TP 7.6 g/dl (6.4-8.2)
[2024-09-14 11:11] LABS: SLIDE REVIEW ABNORMAL SMEAR
[2024-09-14 11:21] LABS: POTASSIUM,K 3.8 mEq/L (3.5-5.1)
[2024-09-14] MEDS: Morphine 2 MG/ML SYRINGE IVPUSH PRN (11:43)
[2024-09-14] MEDS: Sodium Chloride 0.9% 1,000 ML IV ONE (11:43)
[2024-09-14 17:08] VITALS: BP 98/70
== END 2024-09-14 14:03 | disposition home or self-care (01) ==
LOC: JD.ED 10:09
DX: S02.40DA Maxillary fracture, left side, initial encounter for closed fracture (principal); S02.32XA Fracture of orbital floor, left side, initial encounter for closed fracture; I25.2 Old myocardial infarction; I10 Essential (primary) hypertension; E78.00 Pure hypercholesterolemia, unspecified; K21.9 Gastro-esophageal reflux disease without esophagitis; E03.9 Hypothyroidism, unspecified; Z98.84 Bariatric surgery status; Z88.8 Allergy status to other drugs, medicaments and biological substances; Z79.890 Hormone replacement therapy; Z79.899 Other long term (current) drug therapy; W01.198A Fall on same level from slipping, tripping and stumbling with subsequent striking against other object, initial encounter
CPT/HCPCS: 36415; 70450; 70486; 72125; 80053; 83735; 85025; 96361; 96374; 99284; J2270; J7030; 99283